=== PATIENT | female | born 1965 | race Caucasian/White ===

== ENCOUNTER → 2017-11-01 | Outpatient (CLI) | payer MEDICARE, OTHER ==
[~2017-11-01] MED LIST: ABILIFY 5 MG TAB5 MG PO; ATORVASTATIN CA40 MG PO; AZITHROMYCIN 2250 MG PO; B-122500 MCG SL; B12INJ IM; CARISOPRODOL; COMBIVENT INH; COUMADIN 5 MG TA5 M1 PO; ENDOCET 5-3251 EACH PO; FENTANYL PA50 MCG/HR; IRON325 PO; MEDROLDOSEPACK PO; MOBIC; MOBIC15 MG PO; MORPHINE SULFAT15 M4 PO; MS CONTIN 30 MG30 M1 PO; MS CONTIN15 MG PO; NEURONTIN300 MG PO; NEXIUM40 MG PO; OXYCONTIN40 MG; PERCOCET 5-3251 EACH PO; PREDNISONE50 MG PO; PROTONIX40 M2; PROTONIX40 M2 PO; SINGULAIR 10 MG10 M1 PO; VALIUM5 MG; VALIUM5 MG PO; VISTARIL; ZOCOR; ZOLOFT50 MG PO
== END ==
LOC: M.RAD 12:08 → M.ULTRA 14:00
DX: S92.902A Unspecified fracture of left foot, initial encounter for closed fracture (principal); L03.032 Cellulitis of left toe; R60.0 Localized edema; Z86.718 Personal history of other venous thrombosis and embolism; X58.XXXA Exposure to other specified factors, initial encounter; Y93.89 Activity, other specified; Y92.89 Other specified places as the place of occurrence of the external cause; Y99.8 Other external cause status

== ENCOUNTER 2017-12-24 03:05 | Emergency (ER) | payer MEDICARE, OTHER ==
[~2017-12-24] VITALS: Ht 162.6 cm; Wt 79.0 kg
[~2017-12-24 03:05] MED LIST changes: -ATORVASTATIN CA40 MG PO; -B12INJ IM; -IRON325 PO; -MORPHINE SULFAT15 M4 PO; -MS CONTIN 30 MG30 M1 PO; -MS CONTIN15 MG PO
[2017-12-24 03:15] VITALS: BP 143/78
[2017-12-24 03:50] LABS: BE -1.5 mmol/L (-2 to +3); HCO3 23.4 mmol/L (22.0-26.0); PCO2 40.2 mmHg (35.0-45.0); PO2 68.4 mmHg (75.0-100.0); pH 7.383 (7.340-7.450)
[2017-12-24 03:55] LABS: HEMATOCRIT 39.8 % (37.0-47.0); HEMOGLOBIN 13.4 gm/dL (12.0-15.0); MCH 28.4 pg (26.0-34.0); MCHC 33.7 g/dL (28.0-37.0); MCV 84.3 fL (80.0-100.0); MPV 7.4 fl. (7.2-11.1); RBC 4.72 mil/uL (4.20-5.00); RDW-CV 15.7 % (10.5-14.5); WBC 10.9 thou/uL (4.0-11.0)
[2017-12-24 04:05] LABS: CALCIUM 8.8 mg/dL (8.5-10.1); CREATININE 0.6 mg/dL (0.6-1.3); POTASSIUM 3.5 mmol/L (3.5-5.1)
[2017-12-24 04:08] LABS: INR 3.6; PROTIME 34.1 Seconds (9.20-11.50)
--- NOTE | 2017-12-24 04:10 | NUR ---
WHILE PERFORMING REPEAT NIH, PT VOLUNTARILY OPENED HER LT EYELID THAT SHE WAS UNABLE TO OPEN JUST PRIOR, DURING THIS REPEAT EXAM, THEN STOPPED OPENING HER LEFT EYELID FOR THE REMAINING PORTIONS OR THE EXAM. FINDINGS REPORTED TO DR ERVIN.
[2017-12-24 04:15] LABS: ALBUMIN 3.4 g/dL (3.4-5.0); TOTAL BILIRUBIN 0.3 mg/dL (<0.1-1.0); TOTAL PROTEIN 7.5 g/dL (6.4-8.2)
[2017-12-24] MEDS ORDERED: ATORVASTATIN CA40 MG PO (04:41)
[2017-12-24] MEDS ORDERED: MS CONTIN15 MG PO (04:42)
[2017-12-24] MEDS ORDERED: B12INJ IM (04:43)
[2017-12-24] MEDS ORDERED: IRON325 PO (04:43)
[2017-12-24] MEDS ORDERED: MS CONTIN 30 MG30 M1 PO (04:45)
[2017-12-24] MEDS ORDERED: MORPHINE SULFAT15 M4 PO (04:47)
[2017-12-24 05:30] LABS: URINE BILIRUBIN NEGATIVE (Negative); URINE BLOOD NEGATIVE (Negative); URINE CLARITY CLEAR; URINE COLOR STRAW; URINE GLUCOSE-RANDOM 1+ (Negative); URINE KETONES NEGATIVE (Negative); URINE LEUKOCYTES NEGATIVE (Negative); URINE NITRITE NEGATIVE (Negative); URINE PROTEIN NEGATIVE (Negative); URINE SPECIFIC GRAVITY <= 1.005 (1.005-1.030); URINE UROBILINOGEN 0.2 E.U./dl (0.2-1.0)
[2017-12-24 05:36] LABS: AMP/METHAMP Negative (Negative); BARBITURATES Negative (Negative); BENZODIAZEPINES Negative (Negative); COCAINE Negative (Negative); METHADONE Negative (Negative); OPIATES POSITIVE (Negative); PCP Negative (Negative); THC Negative (Negative)
[2017-12-24 07:35] VITALS: BP 116/62
--- NOTE | 2017-12-24 09:41 | EKG ---
[place] [address] ELECTROCARDIOGRAM REPORT Name: DEE DEE PAZINDA Room: [place] [address] ADM IN [facility].#: [id number] Admission: 12/24/17 Attend Phys: Balbina Solomon MD Discharge: Date of : 67 Report #: [id number] THIS REPORT FOR: //name// [facility] ED Test Date: 2017-12-24 Test Time: 03:12:37 Pat Name: DEE DEE PAZ Department: Room: Gender: F [employer] Supervisor: : 1965 Requested By: Abiola Frye Order Number: [id number] MD: Kirt Ramirez Measurements Intervals [place] Rate: 103 P: 42 WI: 158 QRS: 82 QRSD: 86 T: 52 QT: 345 QTc: 452 Interpretive Statements Sinus tachycardia Possible left atrial enlargement Compared to ECG 02/20/2017 05:39:20 Sinus rhythm no longer present Electronically Signed On 12-24-2017 9:41:34 CDT by Kirt Ramirez [email or web address] <ELECTRONICALLY SIGNED> By: Kirt Ramirez MD, [facility] 12/24/17 0941 0312 1 Kirt Ramirez MD, [facility] /EPI
== END 2017-12-24 07:35 | disposition home or self-care (01) ==
LOC: M.ERS 03:05 → M.TBA-ER 06:05
PROVIDERS: Personal Emergency Response Attendant
DX: G45.9 Transient cerebral ischemic attack, unspecified (principal); I63.9 Cerebral infarction, unspecified; C80.1 Malignant (primary) neoplasm, unspecified; C79.2 Secondary malignant neoplasm of skin; K21.9 Gastro-esophageal reflux disease without esophagitis; J45.909 Unspecified asthma, uncomplicated; E78.00 Pure hypercholesterolemia, unspecified; F41.9 Anxiety disorder, unspecified; F17.210 Nicotine dependence, cigarettes, uncomplicated; Z88.0 Allergy status to penicillin; Z88.1 Allergy status to other antibiotic agents

== ENCOUNTER 2018-01-19 00:22 | Emergency (ER) | payer MEDICARE, OTHER ==
[~2018-01-19] VITALS: Ht 162.6 cm; Wt 80.7 kg
[~2018-01-19 00:22] MED LIST changes: +ATORVASTATIN CA40 MG PO; +B12INJ IM; +IRON325 PO; +MORPHINE SULFAT15 M4 PO; +MS CONTIN 30 MG30 M1 PO; +MS CONTIN15 MG PO
[2018-01-19 00:35] LABS: ABSOLUTE BASOPHILS 0.1 thou/uL (0.0-0.2); ABSOLUTE EOSINOPHILS 0.1 thou/uL (0.0-0.7); ABSOLUTE LYMPHOCYTES 2.4 thou/uL (0.8-5.3); ABSOLUTE MONOCYTES 1.2 thou/uL (0.0-1.2); ABSOLUTE NEUTROPHILS 9.9 thou/uL (1.6-8.1); BASOPHILS 0.6 %; EOSINOPHILS 0.9 %; HEMATOCRIT 39.3 % (37.0-47.0); HEMOGLOBIN 13.1 gm/dL (12.0-15.0); LYMPHOCYTES 17.5 %; MCH 28.2 pg (26.0-34.0); MCHC 33.2 g/dL (28.0-37.0); MCV 84.7 fL (80.0-100.0); MONOCYTES 8.8 %; MPV 7.3 fl. (7.2-11.1); NUCLEATED RBCS 0 /100WBC; PLATELET COUNT* 276 thou/uL (150-400); POLYS 72.2 %; RBC 4.64 mil/uL (4.20-5.00); RDW-CV 15.8 % (10.5-14.5); WBC 13.7 thou/uL (4.0-11.0)
[2018-01-19 00:43] LABS: ANION GAP 12 mmol/L (7-16); BUN 9 mg/dL (7-18); CALCIUM 8.7 mg/dL (8.5-10.1); CHLORIDE 104 mmol/L (98-107); CO2 22 mmol/L (21-32); CREATININE 0.8 mg/dL (0.6-1.3); GLUCOSE 91 mg/dL (70-99); POTASSIUM 3.5 mmol/L (3.5-5.1); SODIUM 138 mmol/L (136-145)
[2018-01-19 00:50] LABS: ALBUMIN 3.4 g/dL (3.4-5.0); ALKALINE PHOSPHATASE 69 U/L (46-116); SGOT 19 U/L (15-37); SGPT 28 U/L (30-65); TOTAL BILIRUBIN 0.3 mg/dL (<0.1-1.0); TOTAL PROTEIN 7.6 g/dL (6.4-8.2); TROPONIN-I LEVEL <0.06 ng/mL (<0.06)
[2018-01-19 01:02] LABS: APTT 52.5 Seconds (25.0-31.3); INR 3.8; PROTIME 35.8 Seconds (9.20-11.50)
[2018-01-19 01:41] LABS: AMP/METHAMP Negative (Negative); BARBITURATES Negative (Negative); BENZODIAZEPINES Negative (Negative); COCAINE Negative (Negative); METHADONE Negative (Negative); OPIATES POSITIVE (Negative); PCP Negative (Negative); THC Negative (Negative); URINE BILIRUBIN NEGATIVE (Negative); URINE BLOOD NEGATIVE (Negative); URINE CLARITY CLEAR; URINE COLOR YELLOW; URINE GLUCOSE-RANDOM NEGATIVE (Negative); URINE KETONES NEGATIVE (Negative); URINE LEUKOCYTES-REFLEX NEGATIVE (Negative); URINE NITRITE-REFLEX NEGATIVE (Negative); URINE PROTEIN NEGATIVE (Negative); URINE SPECIFIC GRAVITY <= 1.005 (1.005-1.030); URINE UROBILINOGEN 0.2 E.U./dl (0.2-1.0)
[2018-01-19 03:06] VITALS: BP 103/71
--- NOTE | 2018-01-19 10:24 | EKG ---
[place] [address] ELECTROCARDIOGRAM REPORT Name: DEE DEE RUIZ Room: [facility]#: [id number] Admission: 01/19/18 Attend Phys: Discharge: 01/19/18 Date of : 67 Report #: [id number] THIS REPORT FOR: //name// [facility] ED Test Date: 2018-01-19 Test Time: 01:11:44 Pat Name: DEE DEE PAZ Department: Room: Gender: F Route Sales Person: PAMELA Lopez : 1965 Requested By: [place]ian [place] Order Number: [id number] MD: Raffaele Feliciano Measurements Intervals [place] Rate: 105 P: 55 GA: 169 QRS: 84 QRSD: 85 T: 56 QT: 346 QTc: 458 Interpretive Statements Sinus tachycardia Baseline wander in lead(s) I,II,aVR,aVL Compared to ECG 12/24/2017 03:12:37 No significant changes Electronically Signed On 01-19-2018 10:24:40 CDT by Raffaele Feliciano [email or web address] <ELECTRONICALLY SIGNED> By: Raffaele Feliciano MD, [facility] 01/19/18 1024 [id number] Raffaele Feliciano MD, [facility] /EPI
== END 2018-01-19 03:07 | disposition home or self-care (01) ==
LOC: M.ERS 00:22
PROVIDERS: Nurse Practitioner Family
DX: R41.82 Altered mental status, unspecified (principal); J45.909 Unspecified asthma, uncomplicated; E78.00 Pure hypercholesterolemia, unspecified; F41.9 Anxiety disorder, unspecified; K21.9 Gastro-esophageal reflux disease without esophagitis; F17.210 Nicotine dependence, cigarettes, uncomplicated; Z88.0 Allergy status to penicillin; Z88.1 Allergy status to other antibiotic agents

== ENCOUNTER → 2018-08-17 | Outpatient (CLI) | payer MEDICARE, OTHER | LOC: M.RAD 07-26 14:12 → M.CT 12:25 → M.RAD 13:00 → M.CT 13:30 | DX: Z12.31 Encounter for screening mammogram for malignant neoplasm of breast (principal); K21.0 Gastro-esophageal reflux disease with esophagitis; K27.9 Peptic ulcer, site unspecified, unspecified as acute or chronic, without hemorrhage or perforation; R10.9 Unspecified abdominal pain; M25.512 Pain in left shoulder; Z98.1 Arthrodesis status ==

== ENCOUNTER → 2018-11-29 | Outpatient (CLI) | payer MEDICARE, OTHER | LOC: M.ULTRA 11-15 11:30 | DX: I83.891 Varicose veins of right lower extremity with other complications (principal); R22.41 Localized swelling, mass and lump, right lower limb ==

== ENCOUNTER 2019-02-10 19:32 | Emergency (ER) | payer MEDICARE, OTHER ==
[~2019-02-10] VITALS: Ht 162.6 cm; Wt 70.3 kg
[2019-02-10] MEDS ORDERED: ZANTAC 150MG T150 MG PO (19:41)
[2019-02-10 19:52] LABS: HEMATOCRIT 42.2 % (37.0-47.0); HEMOGLOBIN 14.1 gm/dL (12.0-15.0); MCH 28.2 pg (26.0-34.0); MCHC 33.4 g/dL (28.0-37.0); MCV 84.6 fL (80.0-100.0); MPV 7.4 fl. (7.2-11.1); NUCLEATED RBCS 0 /100WBC; PLATELET COUNT* 267 thou/uL (150-400); RBC 4.99 mil/uL (4.20-5.00); RDW-CV 16.1 % (10.5-14.5); WBC 16.9 thou/uL (4.0-11.0)
[2019-02-10 20:01] LABS: ANION GAP 11 mmol/L (7-16); BUN 11 mg/dL (7-18); CALCIUM 9.3 mg/dL (8.5-10.1); CHLORIDE 102 mmol/L (98-107); CO2 27 mmol/L (21-32); CREATININE 0.8 mg/dL (0.6-1.3); GLUCOSE 108 mg/dL (70-99); POTASSIUM 3.8 mmol/L (3.5-5.1); SODIUM 140 mmol/L (136-145)
[2019-02-10 20:02] LABS: PROTIME 19.7 Seconds (9.20-11.50)
[2019-02-10 20:12] LABS: ALBUMIN 3.9 g/dL (3.4-5.0); ALKALINE PHOSPHATASE 73 U/L (46-116); LIPASE 94 U/L (73-393); NT-PRO BRAIN NAT PEPTIDE 78 pg/mL (<300); SGOT 17 U/L (15-37); SGPT 36 U/L (30-65); TOTAL BILIRUBIN 0.5 mg/dL (<0.1-1.0); TROPONIN-I LEVEL <0.06 ng/mL (<0.06)
[2019-02-10 20:57] LABS: ABSOLUTE EOSINOPHILS 0.2 thou/uL (0.0-0.7); ABSOLUTE LYMPHOCYTES 1.4 thou/uL (0.8-5.3); ABSOLUTE MONOCYTES 1.2 thou/uL (0.0-1.2); ABSOLUTE NEUTROPHILS 14.2 thou/uL (1.6-8.1); PLATELET ESTIMATE ADEQUATE
[2019-02-10 22:44] VITALS: BP 114/72
--- NOTE | 2019-02-12 16:56 | EKG ---
[place] [address] ELECTROCARDIOGRAM REPORT Name: JACKSONDEE DEE GONZALESINDA Room: 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
== END 2019-02-10 22:48 | disposition home or self-care (01) ==
LOC: M.ERS 19:32
PROVIDERS: Emergency Medicine
DX: R07.89 Other chest pain (principal); R51 Headache; J45.909 Unspecified asthma, uncomplicated; F41.9 Anxiety disorder, unspecified; K21.9 Gastro-esophageal reflux disease without esophagitis; E78.00 Pure hypercholesterolemia, unspecified; Z88.0 Allergy status to penicillin; F17.210 Nicotine dependence, cigarettes, uncomplicated; Z85.118 Personal history of other malignant neoplasm of bronchus and lung; Z85.830 Personal history of malignant neoplasm of bone; Z85.72 Personal history of non-Hodgkin lymphomas; Z88.1 Allergy status to other antibiotic agents; Z88.5 Allergy status to narcotic agent

== ENCOUNTER → 2019-02-15 | Outpatient (CLI) | payer MEDICARE, OTHER ==
[~2019-02-15] MED LIST changes: +ZANTAC 150MG T150 MG PO
== END ==
LOC: M.CT 15:00
DX: K57.30 Diverticulosis of large intestine without perforation or abscess without bleeding (principal); R91.8 Other nonspecific abnormal finding of lung field; Z88.6 Allergy status to analgesic agent; Z88.0 Allergy status to penicillin; Z88.8 Allergy status to other drugs, medicaments and biological substances

== ENCOUNTER → 2019-02-22 | Outpatient (CLI) | payer MEDICARE, OTHER | LOC: M.RAD 15:13 | DX: J84.10 Pulmonary fibrosis, unspecified (principal); J98.4 Other disorders of lung; M47.819 Spondylosis without myelopathy or radiculopathy, site unspecified; Z88.8 Allergy status to other drugs, medicaments and biological substances; Z88.0 Allergy status to penicillin ==